=== PATIENT | male | born 1965 | race Asian ===

== ENCOUNTER 2017-07-26 14:07 | Emergency (ER) | payer MEDICAID, OTHER ==
[2017-07-26 14:19] VITALS: BP 155/99; PULSE 81; RESP 18; TEMP 98.6; O2SAT 95
--- NOTE | 2017-07-26 14:23 | EDPHY ---
H & P Stated Complaint: pt snoring/ diff breathing x 3 weeks seen pc/unable to find anything wrong HPI/ROS: CHIEF COMPLAINT: Difficulty breathing while sleeping HISTORY OF PRESENT ILLNESS: The patient is a 51 y/o male complaining of difficulty breathing while sleeping for the past 2 months. Due to this shortness of breath he has been waking up every hour. He did see his PCP 3 weeks ago, but states that no diagnosis was made. His and children have noticed that his snoring has increased. His thinks that his breathing while asleep is irregular ad might even stop. Denies headache, sore throat, chest pain, abdominal pain,weakness, numbness or other complaints. REVIEW OF SYSTEMS: A ten point review of systems was performed and is negative with the exception of the items mentioned in the HPI. Past medical history: Denies Past surgical history: Denies Family history: Denies Social history: at bedside Lives in [place] Works for the [employer] General Appearance: Alert. Vital signs reviewed. Eyes: Pupils equal and round, no conjunctival injection, no discharge. Anicteric. ENT, Mouth: Mucous membranes are moist, no oropharyngeal erythema or edema. Neck: No lymphadenopathy, supple. Respiratory: Lungs are clear to auscultation; no wheezes, rales, or rhonchi. Cardiovascular: Regular rate and rhythm; no murmur, rub, or gallop. Gastrointestinal: Abdomen is soft and nontender, no masses or organomegaly, bowel sounds normal. Skin: Warm and dry, no rashes on exposed skin, normal color. Back: Nontender to palpation over the thoracolumbar spine. No CVAT. Extremities: No lower extremity edema, no calf tenderness or swelling. Neurological: Alert and oriented. Moving all four extremities easily and equally. Psychiatric: Normal affect. - Personal History Current Tetanus/Diphtheria Vaccine: Unsure - Medical/Surgical History Hx Asthma: No Hx Chronic Respiratory Disease: No Hx Diabetes: No Hx Cardiac Disease: No Hx Renal Disease: No Hx Cirrhosis: No Hx Alcoholism: No Hx HIV/AIDS: No Hx Splenectomy or Spleen Trauma: No Other PMH: denies - Social History Smoking Status: Never smoked Constitutional: Initial Vital Signs Temperature (C) 37 C 07/26/17 14:16 Heart Rate 81 07/26/17 14:16 Respiratory Rate 18 07/26/17 14:16 Blood Pressure 155/99 H 07/26/17 14:16 O2 Sat (%) 95 07/26/17 14:16 O2 Delivery Mode Room Air Allergies/Adverse Reactions: No Known Allergies Allergy (Unverified 07/26/17 14:16) Home Medications: Medication Instructions Recorded NK [No Known Home Meds] 07/26/17 Medical Decision Making ED Course/Re-evaluation: The patient is a 51 y/o male complaining of difficulty breathing while sleeping for the past 2 months. Per he has respiratory pauses and snores. He presented to his PCP 3 weeks ago, but there were no acute findings during this visit. His physical exam is normal today. 1450: Reassessed patient and discussed follow up with Dr. Kessler sleep specialist, to confirm diagnosis of sleep apnea. Return precautions provided; patient and his are comfortable with this plan. I do not recommend further ED evaluation. His complaints are suggestive of sleep apnea. I do not suspect cardiac etiology or respiratory infection. Departure - Departure Disposition: Home, Routine, Self-Care Clinical Impression: Sleep apnea Qualifiers: Sleep apnea type: unspecified type Qualified Code(s): G47.30 - Sleep apnea, unspecified Condition: Good Instructions: Sleep Apnea (DC) Additional Instructions: Follow-up with a sleep specialist this week, you have been referred to Dr. Kessler. Return to the Emergency Department for fever, chest pain, shortness of breath, increasing pain or other worsening of condition. Referrals: [facility],. [Clinic] - As per Instructions Toro Kessler MD [Medical Doctor] - As per Instructions Report Scribed for: Sara Obrien Report Scribed by: Maddy Anderson Date of Report: 07/26/17 Time of Report: 14:24 Physician Review and Approval Statement: 07/26/17 14:23 Portions of this note were transcribed by the hospital medical biller. I, Dr. Sara Obrien, personally performed the history, physical exam, and medical decision- making; and confirmed the accuracy of the information in the transcribed note.
== END 2017-07-26 15:02 | disposition home or self-care (01) ==
DX: G47.30 Sleep apnea, unspecified (principal)